=== PATIENT | male | born 1950 | race Caucasian/White ===

== ENCOUNTER 2020-12-27 14:09 | Emergency (ER) | payer OTHER ==
[2020-12-27 16:31] LABS: BASOPHIL 1.1 % (0-2); EOSINOPHIL 6.2 % (0-7); HCT 36.4 % (42.0-52.0); HGB 12.2 g/dl (13.2-18.0); LYMPHOCYTE 20.5 % (15-48); MCH 29.9 pg (25.0-31.0); MCHC 33.5 g/dL (32.0-36.0); MCV 89.2 fL (78.0-100.0); MONOCYTE 8.9 % (0-12); MPV 12.7 fL (6.0-9.5); NRBC 0; PLT 169 K/uL (150-400); RBC 4.08 M/uL (4.70-6.00)
[2020-12-27 16:58] LABS: ALBUMIN 3.2 g/dL (3.4-5.0); BILIRUBIN - TOTAL 0.4 mg/dL (0.2-1.0); BUN/CREAT RATIO (CALC) 28.6 RATIO; CREATININE 1.12 mg/dL (0.67-1.17); GLOBULIN (CALCULATION) 3.4 g/dL; TOTAL PROTEIN 6.6 g/dL (6.4-8.2)
== END 2020-12-27 17:34 | disposition home or self-care (01) ==
LOC: FER 14:09
PROVIDERS: Emergency Medicine
DX: R07.89 Other chest pain (principal); R10.9 Unspecified abdominal pain
CPT/HCPCS: 36415; 71250; 72125; 80053; 82150; 83690; 84484; 85025; 93005